=== PATIENT | male | born 1950 | race African-American/Black ===

== ENCOUNTER 2021-09-06 13:46 | Emergency (ER) | payer OTHER, MEDICARE ==
[~2021-09-06] VITALS: Ht 172.7 cm; Wt 65.8 kg
--- NOTE | 2021-09-06 13:47 | NUR ---
TO ER BED 11, [address] C/O ABDOMINAL PAIN AND VOMITING X 2 WEEKS, HR AT 144 WITH HX OF AFIB BUT "MEDS WERE STOLEN", AAOX3, BREATHING EVEN AND NON LABORED, CONNECTED TO MONITOR, WARM BLANKET GIVEN
[2021-09-06] MEDS ORDERED: DILTIAZEM HCL 25 MG IV IVP ONE (14:00)
[2021-09-06] MEDS ORDERED: IV NS 0.9% 1,000 ML IV ONE (14:00)
[2021-09-06] MEDS ORDERED: DILTIAZEM HCL IV 125 MG in IV D5W 100 ML IV ONE (14:00)
[2021-09-06] MEDS ORDERED: ASPIRIN 81 MG TAB.CHEW PO ONE (14:00)
[2021-09-06] MEDS ORDERED: ONDANSETRON HCL/PF 4 MG/2 ML VIAL IV ONE (14:00)
--- NOTE | 2021-09-06 14:02 | NUR ---
UNABLE TO PROVIDE URINE SPECIMEN AT THIS TIME
--- NOTE | 2021-09-06 14:02 | NUR ---
COVID SWAB DONE AND SENT TO LAB
[2021-09-06] MEDS ORDERED: ONDANSETRON HCL/PF 4 MG/2 ML VIAL ONE (14:03)
[2021-09-06] MEDS ORDERED: ASPIRIN 81 MG TAB.CHEW ONE (14:04)
[2021-09-06] MEDS ORDERED: DILTIAZEM HCL 25 MG IV ONE (14:05)
--- NOTE | 2021-09-06 14:08 | NUR ---
ADDENDUM: Intravenous End Time Documentation: Cardizem 125 mg/ 0.09 100 NacL) Start time:1408 pm End time: 1545 pm IV site:RFA PIV # 20 Port: #1
--- NOTE | 2021-09-06 14:15 | NUR ---
URINE COLLECTED AND SENT TO LAB
--- NOTE | 2021-09-06 14:40 | NUR ---
NURSE OFFICE AT BEDSIDE FOR BLOOD DRAW
[2021-09-06 14:58] LABS: BILIRUBIN,URINE SMALL (NEGATIVE); COLOR,URINE YELLOW (YELLOW); LEUKOCYTE ESTERASE ,URINE NEGATIVE (NEGATIVE); NITRITE, URINE NEGATIVE (NEGATIVE); PROTEIN,URINE 100 mg/dl (NEGATIVE); UGLUCOSE NEGATIVE (NEGATIVE); UROBILINOGEN,URINE 0.2 EU/dL (0.2)
[2021-09-06 14:58] LABS: BASOPHILS % (AUTO) 0.8 % (0.0-2.0); EOSINOPHILS % (AUTO) 0.3 % (0.0-6.0); HEMATOCRIT 45 % (39-51); HEMOGLOBIN 14.5 g/dL (13.5-17.5); LYMPHOCYTES # (AUTO) 0.6 K/uL (0.8-4.8); LYMPHOCYTES % (AUTO) 10.6 % (20.0-44.0); MEAN CORPUSCULAR HGB CONC 33 g/dl (31.0-36.0); MEAN CORPUSCULAR VOLUME 93 fL (80-96); MONOCYTES # (AUTO) 0.7 K/uL (0.1-1.30); NEUTROPHILS # (AUTO) 4.4 K/uL (1.8-8.9); NEUTROPHILS % (AUTO) 76.3 % (43.0-81.0); PLATELET COUNT (AUTO) 199 K/uL (150-450); RED BLOOD CELL COUNT(AUTO) 4.79 MIL/uL (4.5-6.0); WHITE BLOOD COUNT (AUTO) 5.7 K/uL (4.3-11.0)
[2021-09-06 15:03] LABS: BACTERIA,URINE 1+ /HPF (None Seen); RBC,URINE 81-100 /HPF (0-2); SQUAMOUS EPITHELIAL CELL,UR 0-2 /HPF (None Seen)
--- NOTE | 2021-09-06 15:08 | NUR ---
PATIENT WANTS TO GO MD MILLIE AWARE
[2021-09-06 15:09] LABS: CALCIUM, SERUM 8.3 mg/dL (8.5-10.1); CARBON DIOXIDE 24 mmol/L (21-32); CHLORIDE 106 mmol/L (98-107); CREATININE 1.9 mg/dL (0.6-1.3); GLUCOSE 204 mg/dL (74-106); POTASSIUM 4.3 mmol/L (3.5-5.1); SODIUM SERUM 139 mmol/L (136-145); UREA NITROGEN, BLOOD 30 mg/dL (7-18)
--- NOTE | 2021-09-06 15:11 | NUR ---
MOVE SHEET SUBMITTED AND CALLED FOR TELE BED.
--- NOTE | 2021-09-06 15:28 | NUR ---
PATIENT SIGNED AMA FORM, AWARE OF THE HEALTH RISKS
--- NOTE | 2021-09-06 15:30 | NUR ---
IV removed. Catheter intact and site benign. Pressure and 4x4 applied to site. No bleeding noted.Patient discharged to home in stable condition. Written and verbal after care instructions given. Patient verbalizes understanding of instruction.
[2021-09-06 15:34] LABS: ALANINE AMINOTRANSFERASE 531 U/L (12-78); ALBUMIN 2.9 g/dL (3.4-5.0); ALKALINE PHOSPHATASE 120 U/L (46-116); ASPARTATE AMINOTRANSFERASE 283 U/L (15-37); BILIRUBIN,DIRECT 0.3 mg/dL (0.0-0.2); BILIRUBIN,TOTAL 0.7 mg/dL (0.2-1.0); LIPASE 152 U/L (73-393); TOTAL PROTEIN, SERUM 7.3 g/dL (6.4-8.2)
[2021-09-06 15:47] VITALS: BP 113/65
== END 2021-09-06 15:47 | disposition left against medical advice (07) ==
LOC: ER 13:47
DX: I48.91 Unspecified atrial fibrillation (principal); R10.9 Unspecified abdominal pain; R11.2 Nausea with vomiting, unspecified; R07.9 Chest pain, unspecified; Z53.29 Procedure and treatment not carried out because of patient's decision for other reasons; R73.9 Hyperglycemia, unspecified; Z88.6 Allergy status to analgesic agent
CPT/HCPCS: 36415; 71045; 80048; 80076; 81001; 83690; 84484; 85025; 87081; 87426; 93005; 96361; 96365; 96375; 96376; 99291; C9803; J2405; J3490 ×2; J7030; J7060

== ENCOUNTER 2021-10-03 20:29 | Inpatient (IN) | payer OTHER, MEDICARE ==
[~2021-10-03] VITALS: Ht 176.5 cm; Wt 67.1 kg
--- NOTE | 2021-10-03 20:55 | NUR ---
PATIENT [id number] C/O RIGHT SIDE CHEST PAIN RADIATING TO BACK SINCE 0800, NOW FEELS WORST. PATIENT IS A/O X 4, RR EVEN AND UNLABORED, NO SOB NOTED, PATIENT CONNECTED TO CARDIAC AND POX MONITOR.
[2021-10-03 21:35] LABS: BASOPHILS # (AUTO) 0.1 K/uL (0.0-0.2); BASOPHILS % (AUTO) 1.2 % (0.0-2.0); EOSINOPHILS % (AUTO) 2.6 % (0.0-6.0); HEMATOCRIT 38 % (39-51); HEMOGLOBIN 12.1 g/dL (13.5-17.5); LYMPHOCYTES # (AUTO) 1.3 K/uL (0.8-4.8); MEAN CORPUSCULAR HGB CONC 32 g/dl (31.0-36.0); MEAN CORPUSCULAR VOLUME 94 fL (80-96); MONOCYTES # (AUTO) 0.8 K/uL (0.1-1.30); MONOCYTES % (AUTO) 12.7 % (2.0-12.0); NEUTROPHILS # (AUTO) 3.8 K/uL (1.8-8.9); NEUTROPHILS % (AUTO) 62.5 % (43.0-81.0); PLATELET COUNT (AUTO) 252 K/uL (150-450); WHITE BLOOD COUNT (AUTO) 6.1 K/uL (4.3-11.0)
[2021-10-03] MEDS ORDERED: ASPIRIN EC 81 MG TABLET.DR PO ONE (21:46)
[2021-10-03] MEDS ORDERED: DILTIAZEM HCL 50 MG IV ONE (21:46)
[2021-10-03 21:58] LABS: CALCIUM, SERUM 7.7 mg/dL (8.5-10.1); CARBON DIOXIDE 25 mmol/L (21-32); CHLORIDE 108 mmol/L (98-107); CREATININE 1.8 mg/dL (0.6-1.3); GLUCOSE 109 mg/dL (74-106); POTASSIUM 4.1 mmol/L (3.5-5.1); SODIUM SERUM 141 mmol/L (136-145); UREA NITROGEN, BLOOD 22 mg/dL (7-18)
[2021-10-03] MEDS ORDERED: DILTIAZEM HCL 50 MG IV IV ONE (22:00)
[2021-10-03] MEDS ORDERED: ASPIRIN 81 MG TAB.CHEW PO ONE (22:00)
[2021-10-03 22:10] LABS: ALANINE AMINOTRANSFERASE 22 U/L (12-78); ALKALINE PHOSPHATASE 77 U/L (46-116); ASPARTATE AMINOTRANSFERASE 22 U/L (15-37); BILIRUBIN,DIRECT 0.1 mg/dL (0.0-0.2); BILIRUBIN,TOTAL 0.4 mg/dL (0.2-1.0); TOTAL PROTEIN, SERUM 7.3 g/dL (6.4-8.2)
--- NOTE | 2021-10-03 22:14 | NUR ---
COVID TEST SWABBED AND SENT TO LAB
--- NOTE | 2021-10-03 22:46 | NUR ---
SPOKE TO MAGNETIC TESTING TECHNICIAN, PATIENT AUTHORIZED TO STAY.
[2021-10-03] MEDS ORDERED: MAG HYDROX/AL HYDROX/SIMETH 30 ML UDC PO PRN (23:30)
[2021-10-03] MEDS ORDERED: ZOLPIDEM TARTRATE 5 MG TABLET PO PRN (23:30)
[2021-10-03] MEDS ORDERED: MAGNESIUM HYDROXIDE 30 ML UDC PO PRN (23:30)
[2021-10-03] MEDS ORDERED: IV 1/2NS 1000 ML 1,000 ML IV PRN (23:30)
[2021-10-03] MEDS ORDERED: ACETAMINOPHEN 325 MG TABLET PO PRN (23:30)
[2021-10-03] MEDS ORDERED: Z GUARD REMEDY 4 OZ OINT TP PRN (23:30)
[2021-10-03] MEDS ORDERED: ONDANSETRON HCL/PF 4 MG/2 ML VIAL IVP PRN (23:30)
--- NOTE | 2021-10-04 00:41 | NUR ---
tele [phone]
--- NOTE | 2021-10-04 01:08 | NUR ---
CALLED FOR REPORT, NURSE WILL CALL BACK
[2021-10-04] MEDS ORDERED: HYDROCODONE/APAP 5/325MG TABLET ONE (01:13)
[2021-10-04] MEDS: HYDROCODONE/APAP 5/325MG TABLET PO PRN ×2 (01:20→13:29)
--- NOTE | 2021-10-04 01:23 | NUR ---
REPORT GIVEN TO REAGAN PERDOMO FOR MARTIR
--- NOTE | 2021-10-04 02:01 | NUR ---
PATIENT TRANSPORTED TO [facility] ON COPY COORDINATOR PER ACLS PROTOCOL WITHOUT INCIDENT
[2021-10-04 02:05] VITALS: BP 164/70
--- NOTE | 2021-10-04 02:05 | NUR ---
ELECTRICAL ASSEMBLY TECHNICIAN RECIEVING NOTE PATIENT RECEIVED FROM ER VIA [facility]. PATIENT IS A/OX2. NO S/S OF DISTRESS. ON RM AIR SATTING 97%. RFA #22 SL INTACT AND PATENT. TELE MONITOR REVEALS UNCONTROLLED AFIB 77. VS WNL. NO COMPLAINTS OF PAIN AT THIS MOMENT BUT PAIN HAS BEEN ENDORSED TO ME FROM ER REPORT GIVEN TO ME BY RAFI. HE WAS GIVEN PAIN MEDS THEN. PATIENT WAS ORIENTED TO THE UNIT, BELONGINGS LOGGED INTO SHEET AND PLACED IN CHART. PATIENT WAS INSTRUCTED POLICY CHANGE CLERK CERVANTES USE. BED ALARM ON. SAFETY MEASURES IN PLACE: BED AT LOWEST POSITION, RAILS UP X3, CALL CERVANTES WITHIN REACH. WILL CONTINUE TO MONITOR PATIENT.
[2021-10-04 04:00] VITALS: BP 131/69
[2021-10-04] MEDS ORDERED: DILTIAZEM HCL 30 MG TABLET PO SCH (06:00)
--- NOTE | 2021-10-04 07:01 | NUR ---
CAN BANDER OPERATOR CLOSING NOTE PATIENT IS ASLEEP IN BED. A/OX2. NO S/S OF DISTRESS, BREATHING UNLABORED ON RM AIR. RFA #22 INTACT AND PATENT W/ 1/2NS 75ML/HR. TELE MONITOR REVEALS AFIB CONTROLLED 76. SAFETY MEASURES IN PLACE: BED AT LOWEST POSITION, RAILS UP X3, CALL CERVANTES WITHIN REACH. WILL ENDORSE TO NEXT SHIFT FOR MARTIR.
--- NOTE | 2021-10-04 07:35 | NUR ---
AIR LIFT OPERATOR OPENING NOTE PATIENT ASLEEP IN BED, EASY TO AROUSE. A/O X 2. NO S/SX OF DISTRESS NOTED. BREATHING IS EVEN AND UNLABORED. PT WITH EXTERNAL GEOGRAPHIC INFORMATION SYSTEM ANALYST WITH READING CA.FIB CONTROLLED 70'S. IV ACCESS RFA#22 PATENT AND INTACT WITH NS RUNNING @ 75MLS/HR. SAFETY MEASURES IN PLACE WITH BED LOCKED AT LOWEST POSITION WITH SIDE RAILS UP X 2. CALL LIGHT IS WITHIN REACH. WILL CONTINUE TO MONITOR PATIENT THROUGHOUT SHIFT.
[2021-10-04 08:00] VITALS: BP 118/50
[2021-10-04] MEDS: ASPIRIN EC 81 MG TABLET.DR PO SCH (08:10)
[2021-10-04] MEDS: NICOTINE PATCH (14MG) 14 MG PATCH.TD24 TD SCH (08:10)
[2021-10-04] MEDS: PANTOPRAZOLE 40 MG TABLET.DR PO SCH (08:10)
[2021-10-04] MEDS: DILTIAZEM HCL CD 240 MG PO SCH (10:16)
--- NOTE | 2021-10-04 10:45 | NUR ---
RN NOTE CALLED AND SPOKE WITH DR. YOUSUF JOHNSON VIA [employer] ANSWERING SYSTEM TO DO MEDICATION RECON.
[2021-10-04 12:00] VITALS: BP 136/62
--- NOTE | 2021-10-04 13:29 | NUR ---
RN NOTE-PAIN MED PT C/O CHEST GENERALIZED PAIN 01/25. ADMINISTERED NORCO 5-325MG. WILL MONITOR PT FOR EFFECTIVENESS AND/OR ADVERSE S/E.
[2021-10-04] MEDS ORDERED: ATOR40TA PO (14:38)
[2021-10-04] MEDS ORDERED: DILT-32 PO (14:38)
[2021-10-04] MEDS ORDERED: DILTIAZEM HCL CD 120 MG PO SCH (15:00)
[2021-10-04 15:24] LABS: BASOPHILS % (AUTO) 0.6 % (0.0-2.0); HEMATOCRIT 37 % (39-51); LYMPHOCYTES % (AUTO) 21.2 % (20.0-44.0); MEAN CORPUSCULAR HGB CONC 32 g/dl (31.0-36.0); MEAN CORPUSCULAR VOLUME 92 fL (80-96); MONOCYTES # (AUTO) 0.6 K/uL (0.1-1.30); MONOCYTES % (AUTO) 12.5 % (2.0-12.0); NEUTROPHILS # (AUTO) 2.8 K/uL (1.8-8.9); NEUTROPHILS % (AUTO) 56.7 % (43.0-81.0); PLATELET COUNT (AUTO) 236 K/uL (150-450); RED BLOOD CELL COUNT(AUTO) 4.02 MIL/uL (4.5-6.0); WHITE BLOOD COUNT (AUTO) 4.9 K/uL (4.3-11.0)
[2021-10-04 15:34] LABS: CALCIUM, SERUM 7.8 mg/dL (8.5-10.1); CARBON DIOXIDE 25 mmol/L (21-32); CHLORIDE 106 mmol/L (98-107); CREATININE 1.3 mg/dL (0.6-1.3); GLUCOSE 98 mg/dL (74-106); MAGNESIUM 2.2 mg/dL (1.8-2.4); PHOSPHORUS 4.2 mg/dL (2.5-4.9); SODIUM SERUM 138 mmol/L (136-145); UREA NITROGEN, BLOOD 21 mg/dL (7-18)
[2021-10-04 15:46] LABS: THYROID STIMULATING HORMONE 0.706 uIU/mL (0.358-3.74)
[2021-10-04 16:00] VITALS: BP 155/61
[2021-10-04] MEDS: ATORVASTATIN 40 MG TABLET PO SCH (18:04)
--- NOTE | 2021-10-04 18:55 | NUR ---
PLANT QUALITY MANAGER CLOSING NOTE PATIENT ASLEEP IN BED, EASY TO AROUSE. A/O X 2. NO S/SX OF DISTRESS NOTED. BREATHING IS EVEN AND UNLABORED. PT WITH EXTERNAL FINANCIAL LEGAL ASSISTANT WITH READING CA.FIB CONTROLLED 70'S. IV ACCESS RFA#22 PATENT AND INTACT WITH 1/2NS RUNNING @ 75MLS/HR. SAFETY MEASURES IN PLACE WITH BED LOCKED AT LOWEST POSITION WITH SIDE RAILS UP X 2. CALL LIGHT IS WITHIN REACH. ALL NEEDS MET THROUGHOUT SHIFT.WILL ENDORSE CONTINUITY OF CARE TO ONCOMING SHIFT.
[2021-10-04 20:00] VITALS: BP 136/61
--- NOTE | 2021-10-04 22:00 | NUR ---
COMPUTER NETWORKER NOTES PT REFUSED TROP BLOOD DRAW. EXPLAINED TO PT IMPORTANCE OF BLOOD DRAW IN HIS POC BUT PT STILL REFUSED. WILL TRY TO DRAW IN AM PER LAB.
[2021-10-05] VITALS: BP 125/73
[2021-10-05 04:00] VITALS: BP 128/70
--- NOTE | 2021-10-05 06:05 | NUR ---
DOLPHIN RESEARCHER NOTES PT REFUSED BLOOD DRAW. EXPLAINED TO PT IMPORTANCE OF BLOOD DRAW IN HIS POC BUT PT STILL REFUSED. WILL TRY AGAIN LATER PER LAB.
--- NOTE | 2021-10-05 06:30 | NUR ---
EDGE SETTER NOTES AWAKE & RESPONSIVE. NOT IN ANY DISTRESS. NO SOB NOTED. DENIES ANY PAIN OR DISCOMFORT AT THIS TIME. ON TELE SR WITH PACS @ 73 WITH IVF INFUSING WELL. AM CARE DONE. MONITORED ACCORDINGLY. CALL LIGHT WITHIN REACH. BED IN LOWEST POSITION. SR UP X 3 WITH BED ALARM ON FOR SAFETY. WILL ENDORSE TO NEXT SHIFT.
--- NOTE | 2021-10-05 07:16 | NUR ---
CMA OPENING NOTE PATIENT ASLEEP IN BED, EASY TO AROUSE. PATIENT IS ALERT/ ORIENTED X 2-3. PATIENT ON ROOM AIR, WITH NO SIGNS OF DISTRESS. PT ON EXTERNAL BIOFUELS PLANT SUPERINTENDENT WITH SINUS RHYTHYM IN 70'S. WITH IV ACCESS RFA#22 WITH IVF ON NS RUNNING AT 125 L/HR, INFUSING WELL. SAFETY MEASURES IN PLACE WITH BED LOCKED AT LOWEST POSITION WITH SIDE RAILS UP X 2. CALL LIGHT IS WITHIN REACH. WILL CONTINUE TO MONITOR PATIENT THROUGHOUT SHIFT.
[2021-10-05 08:00] VITALS: BP 138/74
--- NOTE | 2021-10-05 08:00 | NUR ---
INSTRUCTIONAL SUPERVISOR NOTE PATIENT SEEN BY DR. GIMENEZ. WILL CONTINUE TO MONITOR PATIENT.
[2021-10-05] MEDS: PANTOPRAZOLE 40 MG TABLET.DR PO SCH (08:51)
[2021-10-05] MEDS: ASPIRIN EC 81 MG TABLET.DR PO SCH (08:52)
[2021-10-05] MEDS: NICOTINE PATCH (14MG) 14 MG PATCH.TD24 TD SCH (08:52)
[2021-10-05] MEDS: DILTIAZEM HCL CD 240 MG PO SCH (08:52)
--- NOTE | 2021-10-05 11:00 | NUR ---
MS RN NOTE PATIENT SEEN BY DR. JOHNSON. WILL CONTINUE TO MONITOR PATIENT.
[2021-10-05 16:00] VITALS: BP 133/56
[2021-10-05] MEDS: ATORVASTATIN 40 MG TABLET PO SCH (17:25)
--- NOTE | 2021-10-05 19:18 | NUR ---
MS RN CLOSING NOTE PATIENT ASLEEP IN BED, EASY TO AROUSE. PATIENT IS ALERT/ ORIENTED X 2-3. PATIENT ON ROOM AIR, WITH NO SIGNS OF DISTRESS. PT ON EXTERNAL FIRE WARDEN WITH SINUS RHYTHYM IN 70'S. WITH IV ACCESS RFA#22 ON SALINE LOCK, INFUSING WELL. SAFETY MEASURES IN PLACE WITH BED LOCKED AT LOWEST POSITION WITH SIDE RAILS UP X 2. CALL LIGHT IS WITHIN REACH. WILL ENDORSE TO NEXT SHIFT FOR CONTINUITY OF CARE.
--- NOTE | 2021-10-05 19:35 | NUR ---
DAY CARE AIDE OPENING NOTES RECEIVED PATIENT ON BED, AWAKE, ALERT AND ORIENTED X 2. ON ROOM AIR, TOLERATING WELL. NO SHORTNESS OF BREATH NOTED. NOT IN ANY FORM OF DISTRESS. NO COMPLAINS OF PAIN AT THIS TIME. WITH IV ACCESS AT RIGHT FOREARM G22; SALINE LOCKED; DRY, PATENT AND INTACT. CALL LIGHT AND TABLE WITHIN REACH. SIDE RAILS UP X 2. BED IS IN LOWEST LOCKED POSITION. SAFETY MEASURES IN PLACED. WILL CONTINUE TO MONITOR Addendum: 10/05/21 at 2221 by JOVON RASHEED RN MS RN OPENING NOTES
[2021-10-05 20:12] VITALS: BP 124/62
[2021-10-05] MEDS: MUPIROCIN OINT 2% 22 GM TUBE NS SCH (20:59)
--- NOTE | 2021-10-05 21:20 | NUR ---
MS RN NOTES PATIENT COMPLAINED OF PAIN WITH SCALE OF 9/10. OFFERED PRN MED TYLENOL; REFUSED TO TAKE. MADIHA FORD MD NOTIFIED; WITH NEW ORDER MADE AND CARRIED OUT.
[2021-10-05] MEDS ORDERED: MORPHINE SULFATE INJ 2 MG/ML DISP.SYRIN IV PRN (22:00)
--- NOTE | 2021-10-06 06:55 | NUR ---
MS RN CLOSING NOTES PATIENT IS ON BED, AWAKE, ALERT AND ORIENTED X 2. DENIES ANY PAIN. NO SOB NOTED. NOT IN ANY FORM OF DISTRESS. WITH IV ACCESS ON RFA G22; SALINE LOCKED; DRY, PATENT AND INTACT. CALL LIGHT AND TABLE WITHIN REACH. SIDE RAILS UP X 2. BED IN LOWEST LOCKED POSITION. SAFETY MEASURES IN PLACED. WILL ENDORSED TO NEXT SHIFT.
[2021-10-06 08:00] VITALS: BP 114/61
--- NOTE | 2021-10-06 08:03 | NUR ---
MS/RN OPENING NOTES RECEIVED PATIENT IN BED, AWAKE, ALERT AND ORIENTED X 2. DENIES ANY PAIN. NO SOB NOTED. NOT IN ANY FORM OF DISTRESS. WITH IV ACCESS ON RFA G22; SALINE LOCKED; DRY, PATENT AND INTACT. CALL LIGHT AND TABLE WITHIN REACH. SIDE RAILS UP X 2. BED IN LOWEST LOCKED POSITION. SAFETY MEASURES IN PLACED. WILL CONTINUE WITH THE PLAN OF CARE.
[2021-10-06] MEDS: PANTOPRAZOLE 40 MG TABLET.DR PO SCH (08:45)
[2021-10-06] MEDS: NICOTINE PATCH (14MG) 14 MG PATCH.TD24 TD SCH (08:45)
[2021-10-06] MEDS: ASPIRIN EC 81 MG TABLET.DR PO SCH (08:45)
[2021-10-06] MEDS: DILTIAZEM HCL CD 240 MG PO SCH (09:00)
[2021-10-06] MEDS ORDERED: APIX5TAB PO (10:02)
[2021-10-06] MEDS: MUPIROCIN OINT 2% 22 GM TUBE NS SCH (10:10)
[2021-10-06] MEDS: APIXABAN 5 MG TABLET PO SCH ×2 (10:17→17:00)
--- NOTE | 2021-10-06 14:16 | NUR ---
"SS Consult: SS consult for homelessness. Pt. Is a 71-year-old White male who demonstrates adequate insight to the reason for hospitalization. Per pt., he presented himself to hospital for chest pain. Pt. was oriented x3, alert, and cooperative. During interview, pt. was capable of following directions, made appropriate eye-contact, and appeared unkempt. Pt.s speech was at a normal rate and pt.s mood was elevated. Pt. reported no hx of mental health, substance abuse, suicidal ideation, or homicidal ideation. Pt. denies auditory hallucinations, visual hallucinations, paranoia, or delusions. SW explored pt.s living situation. Per pt., he has been homeless for about 20 years. Pt. has never been to a jail and refuse to. Pt. stated that he wants to go back to the streets once discharged. Plan: SW provided available resources and pt. accepted. Upon discharge, per pt., he will return to the streets. SW provided pt. with TAP card. Pt. signed homeless waiver and its placed in chart. Resources Provided: [facility]: SPA 2 | [facility]: [facility] Address: Confidential (call for location ) Population Served: Coed # of Beds: 57 SPA 4 | [facility] Provider: Home at Last Address: [address] [place] [address] # of Beds: 49 Population Served: [place]ed [facility] 6 | [facility] Provider: Home at Last Address: [address] [place] [address] # of Beds: 49 Population Served: Coed [facility]anda [facility] Residential Provider: Jane Allen [facility] Address: [address] [facility] [address] # of Beds: 20 Population Served: Women [facility] Facility Provider: Home at Last Address: [address] [address] # of Beds: 30 Population Served: Women SPA 8 | [facility] Library Provider: [facility] [place] Address: [address] [place] [address] # of Beds: 65 Population Served: [facility] Year-round shelters: [facility] [place] [address] [place] [address] ; [facility] [address] [facility] [place] [address]; [facility] [address] [facility] [address] Winter Shelters: Destiny Juanita Vernal Provider: [facility] [place] Address: [address] [place], [address] # of Beds: 47 Population Served: [facility] 6 | [facility] Cristel Ly Vernal Provider: Home at Last Address: [address], [address] # of Beds: 66 Population Served: [facility] [place] Vernal Provider: [facility] Serve Address: [address] [facility], [address] # of Beds: 56 Population Served: [facility] Eron [place] Provider: [facility] Address: [address] [facility], [address] # of Beds: 49 Population Served: [facility] 8 | [facility] Provider: First to Serve Address: [address] [facility], [address] # of Beds: 37 Population Served: [facility] Hygiene: [facility]: [address] [address] Vega ; [facility] [address] [facility] ; [facility] 0485 Simon Humphries . Food Resources: [place] [facility] at [facility]- [address]. [place]; Meet Each Need with Dignity ([facility]) [address] [address] . [place]; [facility] [address] [place] [facility]; [facility] 85Anamika Manning. Mental Health resources provided: [facility] [address] [place], [place] [address] ; [facility] [address] [facility] [address], [place], [place] [phone] ; [facility] [address] [facility] [place], [place] [phone] ; [facility] [address] [place], [place] [id number] Healthcare Clinics: [facility] [address] [facility], [address] [place]. [place] ; [facility] [address] [facility] [address] [place] [address]; [facility] [address] [place] [phone]) [phone] Counseling--Outpatient [facility] [address] [facility], [place] [address] (Specializes in in-depth psychotherapy for emotional distress: anxiety, depression, interpersonal conflicts, life transitions, childhood abuse) [facility] Guidance Center [address] [place] [address] (Assist with solving problem marital difficulties, separation & divorce, aging parents, & grief, chronic & terminal illness) [facility] [address] [place] [address] (Deal with loss & grief, anxiety, marital difficulties) Homebound/Mental Health Services [address] [facility], [address] [place], [place] [phone] (Provide in-home mental services to people who are incapable of leaving their homes) Organization for Needs of the Elderly Senior Service/Resource Center [address] [facility] [address] [facility] [address] [facility]. [place], [place] [address] PSYCHIATRIC OUTPATIENT SERVICES [facility] Partial Hospitalization and Intensive Outpatient Program (Managed Care and [place] Only)[address] [facility] [phone] [facility] Partial Hospitalization and Outpatient [id number] [place], [place] [phone] SIMON ODELL [facility] Evd[address] [facility]. [address] [place], [place] [phone] [facility] Partial Hospitalization and Outpatient [id number] Emeliebony [facility] Simon Odell, [phone] Substance Abuse resources provided included: [facility] Substance Abuse Self-Helpline ([facility]) ; C[facility] -HELP [address] [facility]. [place] [id number] ; [facility] [address] [facility] [address] ; [facility] Rehabilitation Program [address] vdConey Island Hospital [address] ; [facility] [address] [phone] ; [facility] [address] [facility] [address] ; [facility] [address] [facility] [phone] ; [facility] Substance Abuse Helpline([facility])-[facility] ; [facility] ; [facility]; [facility] [place]; [facility] Simon [place]; [facility] [place]; [facility] [place]; [facility] Payal Walters; Alcoholics Anonymous -SFV; [place] ; Marijuana Anonymous -SFV; Narcotics Anonymous www.na.org;"
[2021-10-06 16:00] VITALS: BP 146/62
--- NOTE | 2021-10-06 17:08 | NUR ---
MS/ACCELERATOR SYSTEMS DIRECTOR NOTES PATIENT IS ALERT AND ORIENTEDX3, ABLE TO MAKE NEEDS KNOWN. STABLE ON ROOM AIR. AMBULATORY AND STEADY. PATIENT IS MEDICALLY STABLE AND DR. JOHNSON ORDERED DISCHARGE FOR THE PATIENT. DISCHARGE INSTRUCTIONS GIVEN AND ABLE TO VERBALIZED UNDERSTANDING. IV ACCESS DISCONTINUED. PATIENT REQUESTED FOR A CAB. ESCORTED PATIENT DOWN TO THE LOBBY AND WAS PICKED UP BYA CAB.
== END 2021-10-06 16:45 | disposition home or self-care (01) | DRG 201 ==
LOC: ER 20:36 → TELE 10-04 00:55 → MED 10-05 14:57
PROVIDERS: ADMIT Student in an Organized Health Care Education/Training Program; ATTEND Internal Medicine
DX: I48.91 Unspecified atrial fibrillation (principal); N17.0 Acute kidney failure with tubular necrosis; E44.0 Moderate protein-calorie malnutrition; N18.9 Chronic kidney disease, unspecified; D64.9 Anemia, unspecified; Z59.00 Homelessness unspecified; E88.09 Other disorders of plasma-protein metabolism, not elsewhere classified; F17.210 Nicotine dependence, cigarettes, uncomplicated; Z91.19 Patient's noncompliance with other medical treatment and regimen; R55 Syncope and collapse; R74.01 Elevation of levels of liver transaminase levels; Z20.822 Contact with and (suspected) exposure to COVID-19; Z68.21 Body mass index [BMI] 21.0-21.9, adult; I25.10 Atherosclerotic heart disease of native coronary artery without angina pectoris; Z91.81 History of falling
CPT/HCPCS: 36415; 71045-TC; 80048-TC; 80076-TC; 83735-TC; 84100-TC; 84443-TC; 84484-TC; 85025-TC; 87081-TC; 93307-TC; 97116-TC; 97530-TC; C9803; G0378; J2270; J3490

== ENCOUNTER 2021-10-15 04:13 | Inpatient (IN) | payer MEDICARE, OTHER ==
[~2021-10-15] VITALS: Ht 175.3 cm; Wt 64.4 kg
[~2021-10-15 04:13] MED LIST: APIX5TAB PO; ATOR40TA PO; DILT-32 PO
--- NOTE | 2021-10-15 04:15 | NUR ---
BIBS C/O MIDSTERNAL CP [id number]. PATIENT ALERT AND ORIENTED X3. AMBULATORY WITH NON LABORED BREATHING. PATIENT ON A MONITOR WITH POX. AWAITING MD GONZALEZ.
--- NOTE | 2021-10-15 04:20 | NUR ---
@ BEDSIDE FOR EVAL.
--- NOTE | 2021-10-15 04:30 | NUR ---
BLOOD DRAWN AND SENT TO LAB
--- NOTE | 2021-10-15 04:32 | NUR ---
ER GREASE MACHINE WORKER @ BEDSIDE
[2021-10-15 04:43] LABS: BASOPHILS % (AUTO) 0.5 % (0.0-2.0); EOSINOPHILS % (AUTO) 0.4 % (0.0-6.0); HEMATOCRIT 44 % (39-51); HEMOGLOBIN 14.5 g/dL (13.5-17.5); LYMPHOCYTES # (AUTO) 0.6 K/uL (0.8-4.8); LYMPHOCYTES % (AUTO) 7.8 % (20.0-44.0); MEAN CORPUSCULAR HGB CONC 33 g/dl (31.0-36.0); MEAN CORPUSCULAR VOLUME 92 fL (80-96); MONOCYTES # (AUTO) 0.8 K/uL (0.1-1.30); MONOCYTES % (AUTO) 10.5 % (2.0-12.0); NEUTROPHILS # (AUTO) 6.4 K/uL (1.8-8.9); NEUTROPHILS % (AUTO) 80.8 % (43.0-81.0); PLATELET COUNT (AUTO) 237 K/uL (150-450)
[2021-10-15 05:08] LABS: CALCIUM, SERUM 8.7 mg/dL (8.5-10.1); CARBON DIOXIDE 23 mmol/L (21-32); CHLORIDE 103 mmol/L (98-107); CREATININE 1.8 mg/dL (0.6-1.3); GLUCOSE 116 mg/dL (74-106); POTASSIUM 4.8 mmol/L (3.5-5.1); SODIUM SERUM 136 mmol/L (136-145); UREA NITROGEN, BLOOD 37 mg/dL (7-18)
[2021-10-15] MEDS ORDERED: IV NS 0.9% 1,000 ML IV PRN (05:30)
--- NOTE | 2021-10-15 05:30 | NUR ---
COVID SWAB DONE AND SENT TO LAB
[2021-10-15] MEDS ORDERED: ASPIRIN 81 MG TAB.CHEW ONE (05:47)
[2021-10-15] MEDS ORDERED: NITROGLYCERIN 0.4 MG/TAB BOTTLE ONE (05:47)
[2021-10-15] MEDS ORDERED: MAGNESIUM HYDROXIDE 30 ML UDC PO PRN (06:00)
[2021-10-15] MEDS ORDERED: Z GUARD REMEDY 4 OZ OINT TP PRN (06:00)
[2021-10-15] MEDS ORDERED: ACETAMINOPHEN 325 MG TABLET PO PRN (06:00)
[2021-10-15] MEDS ORDERED: MAG HYDROX/AL HYDROX/SIMETH 30 ML UDC PO PRN (06:00)
[2021-10-15] MEDS ORDERED: NITROGLYCERIN 0.4 MG/TAB BOTTLE SL ONE (06:00)
[2021-10-15] MEDS ORDERED: ZOLPIDEM TARTRATE 5 MG TABLET PO PRN (06:00)
[2021-10-15] MEDS ORDERED: ONDANSETRON HCL/PF 4 MG/2 ML VIAL IVP PRN (06:00)
[2021-10-15] MEDS ORDERED: ASPIRIN 81 MG TAB.CHEW PO ONE (06:00)
--- NOTE | 2021-10-15 06:18 | NUR ---
[facility] ADMITTED UNDER DR FIGUEREDO GIVE 10 MINS [phone]
--- NOTE | 2021-10-15 07:42 | NUR ---
FAXED CLINICALS TO [facility] [phone]
--- NOTE | 2021-10-15 09:10 | NUR ---
SPOKE TO LOIS AT CASE MANAGEMENT, SHE SAID SHE WILL CALL BACK FOR INFO.
--- NOTE | 2021-10-15 09:34 | NUR ---
FEDE RAMIREZ [phone] NOT ACCEPTING PT AT THIS TIME DUE TO BED CAPACITY.
--- NOTE | 2021-10-15 10:08 | NUR ---
call from noel ring, authorized patient to stay here
--- NOTE | 2021-10-15 10:42 | NUR ---
[facility] CALLED COOK SHIP PAGED.
--- NOTE | 2021-10-15 11:22 | NUR ---
PT UNABLE TO PROVIDE URINE AT THIS TIME, PT PROVIDED WITH URINAL AT BEDSIDE.
--- NOTE | 2021-10-15 11:23 | NUR ---
FOLLOWED UP FOR BED.
[2021-10-15] MEDS ORDERED: APIXABAN 5 MG TABLET ONE (11:26)
[2021-10-15] MEDS ORDERED: DILTIAZEM HCL CD 120 MG ONE (11:27)
[2021-10-15] MEDS: DILTIAZEM HCL CD 120 MG PO SCH ×2 (11:35→17:11)
[2021-10-15] MEDS: APIXABAN 5 MG TABLET PO SCH ×2 (11:36→17:12)
--- NOTE | 2021-10-15 11:36 | NUR ---
PT MORNING MEDICATION WAS DELAYED, PT WAS ORIGINALLY GOING TO BE TRANSPORTED, PT WAS ACCEPTED TO HOSPITAL AND AWAITED FOR PT TO BE PUT IN TRANSITION FOR MEDICATION TO BE VERIFIED.
--- NOTE | 2021-10-15 12:01 | NUR ---
BED 326-1 PER NURSING SUP. NURSE IS
--- NOTE | 2021-10-15 12:07 | NUR ---
REPORT GIVEN TO IDALMIS KIRK FOR MARTIR
--- NOTE | 2021-10-15 12:46 | NUR ---
PT TRANSPORT TO 3W IN STABLE CONDITION WITH ACLS PROTOCOL IN PLACE.
--- NOTE | 2021-10-15 12:47 | NUR ---
RN NOTES RECEIVED PATIENT FROM ER WITH MAYNOR. PATIENT ALERT AND ORIENTED TIMES 4. NO PAIN NOTED. NO RESPIRATORY DISTRESS NOTED. LAO SPEAKER. AMBULATORY. ABLE TO MAKE NEEDS KNOWN. IV SITE RIGHT FA g # 18 INTACT. PATIENT REFUSED SKIN CHECKS. PATIENT IS REFUSING TELE MONITOR . WILL TRY LATER. PATIENT REFUSED TO WEAR GOWN. ALL BELONGINGS ACCOUNTED. MEDICATIONS SENT TO PHARMACY. A PACK OF CIGARETTE AND A PATTERN MAKER PROGRAMER PUT IN THE STATION. THERE IS A BROKEN AND CELL PHONE IN THE BELONGINGS. KEPT BED SIDE WITH OTHER BELONGINGS. BED IN THE LOWEST POSITION AND LOCKED.CALL LIGHT AND TABLE IN REACH. WILL CONTINUE TO MONITOR.
[2021-10-15 12:50] VITALS: BP 123/61
[2021-10-15 16:00] VITALS: BP 140/66
[2021-10-15] MEDS: ATORVASTATIN 40 MG TABLET PO SCH (17:11)
--- NOTE | 2021-10-15 18:53 | NUR ---
CHIEF OF SAFETY AND PROTECTION NOTES PATIENT RESTING IN BED. A/O TIMES 4. NO PAIN NOTED. NO RESPIRATORY DISTRESS NOTED. NO SOB NOTED. PATIENT REFUSED TELE MONITORING AND REMOVED THE MONITOR. EDUCATED AND EXPLAINED TO THE PATIENT STILL REFUSING. PATIENT REFUSED SKIN CHECKS. ABLE TO MAKE NEEDS KNOWN. ALL DUE MEDS GIVEN ORDERED. IV ACCESS ON THE RIGHT FA INTACT. ALL NEEDS ATTENDED. BED LOCKED IN LOWEST POSITION. CALL LIGHT AND TABLE IN REACH. WILL ENDORSE FOR MARTIR.
--- NOTE | 2021-10-15 19:20 | NUR ---
TELE/RN NOTE PT RESTING IN BED, EASILY AROUSABLE. A/OX4. PT REFUSES TELE MONITOR AT THIS TIME. HE DENIES ANY PAIN OR DISCOMFORT. RESPIRATIONS EVEN/UNLABORED. PT REFUSING SKIN ASSESSMENT. IV SITE: R-FA #18G INTACT/PATENT, RUNNING NS TKO. PT IN NO ACUTE DISTRESS. SAFETY MEASURES IN PLACE. WILL CONT TO MONITOR.
[2021-10-15 20:00] VITALS: BP 138/72
--- NOTE | 2021-10-15 20:27 | NUR ---
Seen by . Noted new order: [place] i tab po q6hr prn for mod pain
--- NOTE | 2021-10-15 20:55 | NUR ---
RN NOTE PT C/O SOB, RR 19, O2 SAT WAS 94%. PLACED ON O2 @2LPM VIA NC. O2 SAT TO 96%
--- NOTE | 2021-10-15 21:35 | NUR ---
RN NOTE PT C/O UPSET STOMACH. GIVEN MAALOX ORDERED
[2021-10-15] MEDS: HYDROCODONE/APAP 5/325MG TABLET PO PRN (23:26)
[2021-10-16] VITALS (7 sets, daily range): BP systolic 128–156; BP diastolic 57–72
--- NOTE | 2021-10-16 06:52 | NUR ---
RN NOTE PT RESTING IN BED, EASILY AROUSABLE TO STIMULI. HE DENIES ANY PAIN AT THIS TIME. DENIES SOB. ON O2 @2LPM VIA NC, O2 SAT 98%. PT IN NO ACUTE DISTRESS. SAFETY MEASURES MAINTAINED.
[2021-10-16 07:20] LABS: CALCIUM, SERUM 7.8 mg/dL (8.5-10.1); CREATININE 1.3 mg/dL (0.6-1.3); POTASSIUM 3.9 mmol/L (3.5-5.1)
--- NOTE | 2021-10-16 07:25 | NUR ---
ms rn received on bed, awake,alert,oriented x4,not in any form of distress, respirations even and unlabored,no sob noted, lungs are clear,abdomen soft,positive bowel sounds,denies pain at this time, will monitor patient.
[2021-10-16 07:28] LABS: BASOPHILS # (AUTO) 0.1 K/uL (0.0-0.2); BASOPHILS % (AUTO) 1.2 % (0.0-2.0); EOSINOPHILS % (AUTO) 2.2 % (0.0-6.0); HEMATOCRIT 41 % (39-51); HEMOGLOBIN 13.4 g/dL (13.5-17.5); LYMPHOCYTES # (AUTO) 0.7 K/uL (0.8-4.8); LYMPHOCYTES % (AUTO) 12.5 % (20.0-44.0); MEAN CORPUSCULAR HGB CONC 33 g/dl (31.0-36.0); MEAN CORPUSCULAR VOLUME 92 fL (80-96); MONOCYTES # (AUTO) 0.6 K/uL (0.1-1.30); NEUTROPHILS # (AUTO) 4.4 K/uL (1.8-8.9); NEUTROPHILS % (AUTO) 74.1 % (43.0-81.0); PLATELET COUNT (AUTO) 189 K/uL (150-450); RED BLOOD CELL COUNT(AUTO) 4.44 MIL/uL (4.5-6.0); WHITE BLOOD COUNT (AUTO) 5.9 K/uL (4.3-11.0)
--- NOTE | 2021-10-16 07:45 | NUR ---
MS KIRK OPENING NOTES RECEIVED PATIENT LYING IN BED, A/O X4. C/O RADIATING CHEST PAIN TO LEFT ARM 01/25. ADMINISTERED O2 AT 2 LPM VIA NASAL CANNULA. HAS RIGHT FOREARM IV ACCESS #18G AND SALINE LOCK. REDNESS NOTED AROUND IV SITE. PER AM NURSE, PATIENT IS NON-COOPERATIVE AND REFUSED IV RE-INSERTION. SAFETY PRECAUTIONS IN PLACE. WILL CONTINUE PLAN OF CARE. Addendum: 10/16/21 at 2005 by December ALVARO KIRK INCORRECT TIME. WILL RE-ENTER NOTES
[2021-10-16 08:27] LABS: PHOSPHORUS 3.4 mg/dL (2.5-4.9)
--- NOTE | 2021-10-16 09:00 | NUR ---
ms mott breakfast served,due meds given,tolerated well.
[2021-10-16] MEDS: NICOTINE PATCH (14MG) 14 MG PATCH.TD24 TD SCH (09:21)
[2021-10-16] MEDS: DILTIAZEM HCL CD 120 MG PO SCH ×2 (09:21→17:49)
[2021-10-16] MEDS: APIXABAN 5 MG TABLET PO SCH ×2 (09:22→17:50)
--- NOTE | 2021-10-16 10:00 | NUR ---
ms rn was seen by dr. taiwo porter/ orders made and carried out.
--- NOTE | 2021-10-16 11:05 | NUR ---
ms rn was seen by makenna agrees to have ctangranjana, will let him sing consent.
[2021-10-16 11:16] LABS: BAND % (MANUAL) 1 % (0.0-5.0); NEUTROPHILS % (MANUAL) 67 (42-76)
[2021-10-16 11:17] LABS: EOSINOPHILS % (MANUAL) 5 % (0-4); LYMPHOCYTES % (MANUAL) 12 % (16-48); MONOCYTES % (MANUAL) 12 % (0-11.0); REACTIVE LYMPHOCYTES 3 % (0-0)
--- NOTE | 2021-10-16 13:20 | NUR ---
ms rn cisco network architect came to picker feeder patient, patient claimed that he in allergic to dye, will notify md, agrees to have pre meds before procedure.
--- NOTE | 2021-10-16 14:00 | NUR ---
ms rn notified, decided to do it in am, not today
[2021-10-16] MEDS ORDERED: diphenhydrAMINE HCL 50 MG/ML VIAL IV PRN (17:30)
[2021-10-16] MEDS ORDERED: HYDROCORTISONE SOD SUCCINATE 100 MG/2 ML VIAL IV PRN (17:30)
[2021-10-16] MEDS: ATORVASTATIN 40 MG TABLET PO SCH (17:49)
--- NOTE | 2021-10-16 17:54 | NUR ---
ms rn on bed, no distress noted.
--- NOTE | 2021-10-16 18:30 | NUR ---
ms rn patient refused to insert another iv.
--- NOTE | 2021-10-16 19:45 | NUR ---
MS RN OPENING NOTES RECEIVED PATIENT LYING IN BED, A/O X4. C/O RADIATING CHEST PAIN TO LEFT ARM 01/25. ADMINISTERED O2 AT 2 LPM VIA NASAL CANNULA. HAS RIGHT FOREARM IV ACCESS #18G AND SALINE LOCK. REDNESS NOTED AROUND IV SITE. PER AM NURSE, PATIENT IS NON-COOPERATIVE AND REFUSED IV RE-INSERTION. SAFETY PRECAUTIONS IN PLACE. WILL CONTINUE PLAN OF CARE.
[2021-10-16] MEDS: HYDROCODONE/APAP 5/325MG TABLET PO PRN (20:00)
--- NOTE | 2021-10-17 06:42 | NUR ---
MS RN CLOSING NOTES PATIENT LYING IN BED, SLEEPING INTERMITTENTLY. A/O X4. NO APPARENT DISTRESS NOTED. HAS PRN O2. CURRENTLY STABLE ON ROOM AIR. ASKED FOR PUDDING AROUND 0200. NO C/O PAIN AT THIS TIME. HAS RIGHT FOREARM IV ACCESS #18G AND SALINE LOCK. LEAKING NOTED. REFUSED IV RE-INSERTION AND AM LABS. EXPLAINED RISKS AND BENEFITS. SAFETY PRECAUTIONS IN PLACE: BED LOCK AND LOW, SIDE RAILS UP X2, CALL LIGHT WITHIN REACH.
--- NOTE | 2021-10-17 07:39 | NUR ---
MS RN OPENING NOTES PATIENT ASLEEP IN BED, AROUSABLE BY NAME TO A/O X 4. TOLERATING WELL ON ROOM AIR WITH NO S/S OF RESPIRATORY DISTRESS. NO COMPLAINTS OF PAIN OR DISCOMFORT AT THIS TIME. IV ACCESS # 18 G SL LEAKING NOTED, PATIENT AGREED TO IV INSERTION ATTEMPT AFTER BREAKFAST. SAFETY PRECAUTIONS IN PLACE: BED IN LOWEST LOCKED POSITION, SIDE RAILS UP X2, CALL LIGHT WITHIN REACH. WILL CONTINUE TO MONITOR.
[2021-10-17 08:23] VITALS: BP 116/54
[2021-10-17] MEDS: NICOTINE PATCH (14MG) 14 MG PATCH.TD24 TD SCH (08:26)
[2021-10-17 08:30] VITALS: BP 110/86
[2021-10-17] MEDS: DILTIAZEM HCL CD 120 MG PO SCH (08:30)
[2021-10-17] MEDS: APIXABAN 5 MG TABLET PO SCH (08:31)
[2021-10-17] MEDS ORDERED: SACU1TAB PO (09:17)
--- NOTE | 2021-10-17 10:43 | NUR ---
MS RN NOTE SPOKE WITH PATIENT REGARDING [facility] PROCEDURE AND REQUIREMENT FOR AN IV START. PATIENT REFUSED IV START AND [facility] PROCEDURE AND REQUESTED DISCHARGE. I EXPLAINED TO PATIENT THE RISKS OF LEAVING THE HOSPITAL BEFORE RECEIVING THE PROCEDURE, BUT PATIENT INSISTED ON LEAVING HOSPITAL PRIOR TO [facility]. I EXPLAINED TO PATIENT ALL EMERGENCY SYMPTOMS AND WHEN TO CALL 911 TO RETURN TO HOSPITAL. PATIENT VERBALIZED UNDERSTANDING. BOILER ASSISTANT OPERATOR WAS CONTACTED REGARDING PATIENT DECISION AND PLACED DISCHARGE ORDER FOR PATIENT. PATIENT VITAL SIGNS STABLE, NO COMPLAINTS OF PAIN AT THIS TIME. PATIENT WILL BE DISCHARGED.
--- NOTE | 2021-10-17 11:51 | NUR ---
MS RN NOTE PATIENT CLEARED FOR DISCHARGE BY MATRIX INSPECTOR, PATIENT VISITED EARLIER TODAY BY HOSPITAL SCIENTIST, CAROL LEFT FOR SW REGARDING PATIENT DISCHARGE.
--- NOTE | 2021-10-17 12:00 | NUR ---
MS DENIAL RESOLUTION SPECIALIST NOTE PATIENT STABLE WITH NO COMPLAINTS OF PAIN OR DISCOMFORT. PATIENT REFUSED REMOVAL OF IV ACCESS, PATIENT MADE AWARE OF RISK OF INFECTION IF IV REMAINED IN PLACE, PATIENT RE-AFFIRMED REFUSAL OF IV ACCESS REMOVAL. PATIENT PROVIDED WITH ALL DISCHARGE INSTRUCTIONS AND PAPERWORK, PATIENT MADE AWARE OF MD DISCHARGE RECOMMENDATIONS AND VERBALIZED UNDERSTANDING, DISCHARGE INSTRUCTIONS LIST SIGNED. PATIENT VERBALIZED POSSESSION OF ALL BELONGINGS AND BELONGINGS LIST SIGNED. PATIENT ESCORTED OFF OF FLOOR VIA WHEELCHAIR BY RN, TO [facility], WITHOUT INCIDENT. Addendum: 10/17/21 at 1216 by LENA BEGUM RN PATIENT DISCHARGED WITH ALL HOME MEDICATIONS FROM PHARMACY. EDUCATION PROVIDED ON ALL MEDICATIONS INCLUDING NAMES, DOSAGES, ROUTES, FREQUENCIES, INDICATIONS AND SIDE EFFECTS. PATIENT VERBALIZED UNDERSTANDING.
== END 2021-10-17 12:00 | disposition home or self-care (01) | DRG 201 ==
LOC: ER 04:16 → TRANSITION 11:17 → TELE 12:18 → MED 10-16 16:22
PROVIDERS: ADMIT Registered Nurse; ATTEND Registered Nurse
DX: I48.91 Unspecified atrial fibrillation (principal); N17.0 Acute kidney failure with tubular necrosis; G72.9 Myopathy, unspecified; E78.5 Hyperlipidemia, unspecified; N18.9 Chronic kidney disease, unspecified; Z59.00 Homelessness unspecified; Z20.822 Contact with and (suspected) exposure to COVID-19; Z88.6 Allergy status to analgesic agent; Z87.81 Personal history of (healed) traumatic fracture; Z88.8 Allergy status to other drugs, medicaments and biological substances; Z79.01 Long term (current) use of anticoagulants; Z79.899 Other long term (current) drug therapy; R74.01 Elevation of levels of liver transaminase levels; Z91.14 Patient's other noncompliance with medication regimen; Z76.5 Malingerer [conscious simulation]; Z91.041 Radiographic dye allergy status; Z72.0 Tobacco use; Z91.19 Patient's noncompliance with other medical treatment and regimen; Z86.59 Personal history of other mental and behavioral disorders; R19.7 Diarrhea, unspecified; I13.0 Hypertensive heart and chronic kidney disease with heart failure and stage 1 through stage 4 chronic kidney disease, or unspecified chronic kidney disease; I50.22 Chronic systolic (congestive) heart failure
CPT/HCPCS: 36415; 71045-TC; 80048-TC; 83735-TC; 84100-TC; 84484-TC; 85025-TC; 87045-TC; 87081-TC; C9803; G0378; J7030

== ENCOUNTER 2022-05-18 17:30 | Inpatient (IN) | payer MEDICARE, OTHER ==
[~2022-05-18] VITALS: Ht 170.2 cm; Wt 68.0 kg
[~2022-05-18 17:30] MED LIST changes: +SACU1TAB PO
--- NOTE | 2022-05-18 17:45 | NUR ---
BIB [facility] FROM [facility], WORSENING SOB/WHEEZING X 2 DAYS, ALBUTEROL HHN GIVEN ENROUTE. PLACED ON BED, AAOX4, DYSPNEIC RR-26, SATURATING AT 100% WITH 15LIT NRM.
[2022-05-18] MEDS ORDERED: methylPREDNISolone SOD SUCC 125 MG/2ML VIAL IV ONE (18:00)
[2022-05-18] MEDS ORDERED: IPRATROPIUM NEB FS 0.5 MG/2.5 ML AMPUL.NEB NEB ONE (18:00)
[2022-05-18] MEDS ORDERED: ALBUTEROL FS 2.5 MG/3 ML VIAL.NEB NEB ONE (18:00)
[2022-05-18] MEDS ORDERED: METO25TA20 PO (19:06)
[2022-05-18] MEDS ORDERED: APIX5TAB PO (19:06)
[2022-05-18] MEDS ORDERED: ASPI-1169 PO (19:06)
[2022-05-18] MEDS ORDERED: NITR0.4T48 SL (19:06)
[2022-05-18] MEDS ORDERED: ALBU18HF2 IH (19:06)
[2022-05-18] MEDS ORDERED: ATOR40TA PO (19:07)
[2022-05-18] MEDS ORDERED: CHOL100043 PO (19:07)
[2022-05-18] MEDS ORDERED: POTA99TA14 PO (19:08)
[2022-05-18 19:17] LABS: CALCIUM, SERUM 8.2 mg/dL (8.5-10.1); CARBON DIOXIDE 29 mmol/L (21-32); CHLORIDE 108 mmol/L (98-107); CREATININE 2.1 mg/dL (0.6-1.3); GLUCOSE 114 mg/dL (74-106); POTASSIUM 4.3 mmol/L (3.5-5.1); SODIUM SERUM 143 mmol/L (136-145); UREA NITROGEN, BLOOD 46 mg/dL (7-18)
--- NOTE | 2022-05-18 19:27 | NUR ---
LAB CALLED HEAVEN Cortes MD MADE AWARE.
[2022-05-18 19:31] LABS: ALANINE AMINOTRANSFERASE 33 U/L (12-78); ALBUMIN 3.8 g/dL (3.4-5.0); ALKALINE PHOSPHATASE 75 U/L (46-116); ASPARTATE AMINOTRANSFERASE 32 U/L (15-37); BILIRUBIN,DIRECT 0.2 mg/dL (0.0-0.2); BILIRUBIN,TOTAL 0.5 mg/dL (0.2-1.0); TOTAL PROTEIN, SERUM 8.4 g/dL (6.4-8.2)
[2022-05-18] MEDS ORDERED: ALBUTEROL FS 2.5 MG/3 ML VIAL.NEB ONE (19:45)
[2022-05-18] MEDS ORDERED: IPRATROPIUM NEB FS 0.5 MG/2.5 ML AMPUL.NEB ONE (19:45)
--- NOTE | 2022-05-18 19:49 | NUR ---
swab for covid19 sent to lab
[2022-05-18 20:07] LABS: BASOPHILS # (AUTO) 0.1 K/uL (0.0-0.2); BASOPHILS % (AUTO) 0.6 % (0.0-2.0); EOSINOPHILS % (AUTO) 0.2 % (0.0-6.0); HEMATOCRIT 39 % (39-51); HEMOGLOBIN 12.6 g/dL (13.5-17.5); LYMPHOCYTES # (AUTO) 0.9 K/uL (0.8-4.8); MEAN CORPUSCULAR HGB CONC 32 g/dl (31.0-36.0); MEAN CORPUSCULAR VOLUME 92 fL (80-96); MONOCYTES # (AUTO) 0.8 K/uL (0.1-1.30); MONOCYTES % (AUTO) 8.6 % (2.0-12.0); NEUTROPHILS # (AUTO) 8.1 K/uL (1.8-8.9); NEUTROPHILS % (AUTO) 81.6 % (43.0-81.0); PLATELET COUNT (AUTO) 200 K/uL (150-450); RED BLOOD CELL COUNT(AUTO) 4.21 MIL/uL (4.5-6.0); WHITE BLOOD COUNT (AUTO) 9.9 K/uL (4.3-11.0)
[2022-05-18] MEDS ORDERED: CLOPIDOGREL BISULFATE 75 MG TABLET PO ONE (20:30)
[2022-05-18] MEDS ORDERED: MAG HYDROX/AL HYDROX/SIMETH 30 ML UDC PO PRN (21:00)
[2022-05-18] MEDS ORDERED: IPRATROPIUM NEB FS 0.5 MG/2.5 ML AMPUL.NEB NEB PRN (21:00)
[2022-05-18] MEDS ORDERED: ONDANSETRON HCL/PF 4 MG/2 ML VIAL IVP PRN (21:00)
[2022-05-18] MEDS ORDERED: MORPHINE SULFATE INJ 2 MG/ML DISP.SYRIN IV PRN (21:00)
[2022-05-18] MEDS ORDERED: ACETAMINOPHEN 325 MG TABLET PO PRN (21:00)
[2022-05-18] MEDS ORDERED: TEMAZEPAM 15 MG CAPSULE PO PRN (21:00)
[2022-05-18] MEDS ORDERED: HYDROCODONE/APAP 5/325MG TABLET PO PRN (21:00)
[2022-05-18] MEDS ORDERED: MAGNESIUM HYDROXIDE 30 ML UDC PO PRN (21:00)
[2022-05-18] MEDS ORDERED: ALBUTEROL FS 2.5 MG/3 ML VIAL.NEB NEB PRN (21:00)
[2022-05-18] MEDS ORDERED: HOME MED MISCELLANEOUS XX SCH (21:00)
[2022-05-18] MEDS ORDERED: Z GUARD REMEDY 4 OZ OINT TP PRN (21:00)
--- NOTE | 2022-05-18 21:32 | NUR ---
[facility] BED 115-1
[2022-05-18] MEDS ORDERED: CLOPIDOGREL BISULFATE 75 MG TABLET ONE (21:43)
[2022-05-18] MEDS ORDERED: ATORVASTATIN 40 MG TABLET PO SCH (22:00)
--- NOTE | 2022-05-18 22:00 | NUR ---
REPORT GIVEN TO YULI RN ROOM 115-1 FOR MARTIR
[2022-05-18] MEDS ORDERED: methylPREDNISolone SOD SUCC 125 MG/2ML VIAL ONE (22:01)
--- NOTE | 2022-05-18 22:14 | NUR ---
TRANSFERRED PT TO ROOM
--- NOTE | 2022-05-18 22:30 | NUR ---
RN OPENING NOTE RECEIVED PT VIA [facility] FROM ER WITH A DIAGNOSIS OF COPD EXACERBATION. PT IS AWAKE, A/O X 1-2, VERBALLY RESPONSIVE. SOB NOTED. PT ON NC AT 3LPM WITH O2 SAT AT 94% UPON ADMISSION IN THE UNIT. NO IV ACCESS UPON RECEIVING BUT WAS ABLE TO PUT ONE AT L WRIST, #22g. NO OPEN WOUNDS; SKIN INTACT. ALL SAFETY MEASURES IN PLACE: BED LOCKED IN LOW POSITION, BED ALARM ON. CALL LIGHT WITHIN REACH. WILL CONT TO MONITOR.
[2022-05-18] MEDS: methylPREDNISolone SOD SUCC 40 MG/ML VIAL IV SCH (23:23)
[2022-05-19] VITALS: BP 120/73
[2022-05-19 04:00] VITALS: BP 114/69
[2022-05-19] MEDS: methylPREDNISolone SOD SUCC 40 MG/ML VIAL IV SCH (04:19)
--- NOTE | 2022-05-19 06:42 | NUR ---
RN NOTE PT COMPLAINS OF CHEST PAIN. V/S ARE STABLE. O2 SAT IS 97%. NO ACUTE RESPI DISTRESS NOTED. GAVE MORPHINE PRN ORDERED. WILL ENDORSE TO AM SHIFT NURSE FOR MARTIR.
--- NOTE | 2022-05-19 06:51 | NUR ---
RN NOTE PT REFUSED MIDLINE INSERTION. EDUCATED PT ABOUT IMPORTANCE OF THE MIDLINE FOR DRUG MEDICATION, PT THREATENS TO LEAVE IF WE PUSH THROUGH WITH THE ML INSERTION. REITERATED THE RISKS OF HIS REFUSAL. STILL SAID NO. WILL ENDORSE TO AM SHIFT NURSE FOR MARTIR.
[2022-05-19] MEDS ORDERED: PANTOPRAZOLE 40 MG TABLET.DR PO SCH (07:30)
--- NOTE | 2022-05-19 07:30 | NUR ---
BUSINESS AFFAIRS MANAGER AM NOTES PT IN BED, AWAKE,ALERT /ORIENTED X2-3, ABLE TO EXPRESS NEEDS, ON 3L O2 NASAL CANULA, NO DISTRESS, RESPIRATION UNLABORED, SFIB CON HR 86, DENIES CHEST PAIN OR DISCOMFORT, LEFT WRIST G [address], FLUSHES WELL, SITE CLEAR. CARDIAC DIET. BED REST FOR NOW. SAFETY MEASURES IN PLACE, BED LOW LOCKED CALL WITHIN REACH. WILL CONT TO MONITOR. PATIENT FOR MIDLINE INSERTION BUT REFUSED EARLIER. STATED HE WILL LEAVE IF WE INSIST PUTTING A LINE ON HIM DESPITE EXPLAINING THE IMPORTANCE.
[2022-05-19 07:52] LABS: CALCIUM, SERUM 7.7 mg/dL (8.5-10.1); CARBON DIOXIDE 24 mmol/L (21-32); CHLORIDE 108 mmol/L (98-107); CREATININE 1.8 mg/dL (0.6-1.3); GLUCOSE 113 mg/dL (74-106); MAGNESIUM 1.9 mg/dL (1.8-2.4); PHOSPHORUS 3.6 mg/dL (2.5-4.9); POTASSIUM 4.1 mmol/L (3.5-5.1); SODIUM SERUM 142 mmol/L (136-145); UREA NITROGEN, BLOOD 39 mg/dL (7-18)
[2022-05-19 07:53] LABS: CHOLESTEROL 129 mg/dL (<200); HDL CHOLESTEROL 67 mg/dL (40-60); LDL 55 mg/dL (0-99); TRIGLYCERIDES 38 mg/dL (30-150)
[2022-05-19 07:57] LABS: BASOPHILS % (AUTO) 0.1 % (0.0-2.0); HEMATOCRIT 36 % (39-51); HEMOGLOBIN 11.8 g/dL (13.5-17.5); LYMPHOCYTES # (AUTO) 0.2 K/uL (0.8-4.8); LYMPHOCYTES % (AUTO) 3.1 % (20.0-44.0); MEAN CORPUSCULAR HGB CONC 33 g/dl (31.0-36.0); MEAN CORPUSCULAR VOLUME 92 fL (80-96); MONOCYTES # (AUTO) 0.1 K/uL (0.1-1.30); MONOCYTES % (AUTO) 1.3 % (2.0-12.0); NEUTROPHILS # (AUTO) 5.3 K/uL (1.8-8.9); NEUTROPHILS % (AUTO) 95.5 % (43.0-81.0); PLATELET COUNT (AUTO) 177 K/uL (150-450); RED BLOOD CELL COUNT(AUTO) 3.94 MIL/uL (4.5-6.0); WHITE BLOOD COUNT (AUTO) 5.6 K/uL (4.3-11.0)
[2022-05-19 08:00] VITALS: BP 109/61
[2022-05-19] MEDS ORDERED: METOPROLOL TARTRATE 25 MG TABLET PO SCH (09:00)
[2022-05-19] MEDS ORDERED: DILTIAZEM HCL CD 120 MG PO SCH (09:00)
[2022-05-19] MEDS ORDERED: ASPIRIN 81 MG TAB.CHEW PO SCH (09:00)
[2022-05-19] MEDS ORDERED: IV NS 0.9% 1,000 ML IV PRN (09:30)
--- NOTE | 2022-05-19 09:30 | NUR ---
RN NOTES DUE MEDS GIVEN
[2022-05-19] MEDS: APIXABAN 5 MG TABLET PO SCH ×2 (09:38→16:30)
[2022-05-19] MEDS ORDERED: LEVOFLOXACIN (250MG) 250 MG TABLET PO SCH (11:00)
[2022-05-19 12:00] VITALS: BP 115/78
[2022-05-19] MEDS ORDERED: methylPREDNISolone SOD SUCC 40 MG/ML VIAL IV SCH (13:00)
[2022-05-19] MEDS ORDERED: ALBUTEROL FS 2.5 MG/3 ML VIAL.NEB NEB SCH (13:30)
[2022-05-19] MEDS ORDERED: IPRATROPIUM NEB FS 0.5 MG/2.5 ML AMPUL.NEB NEB SCH (13:30)
[2022-05-19 16:00] VITALS: BP 101/51
--- NOTE | 2022-05-19 18:39 | NUR ---
EMERGENCY PLANNING AND RESPONSE MANAGER CLOSING NOTES PT RESTING IN BED, AWAKE,ALERT /ORIENTED X2-3, ABLE TO EXPRESS NEEDS, ON 3L O2 NASAL CANULA, NO DISTRESS, RESPIRATION UNLABORED, AFIB CON HR 65, DENIES CHEST PAIN OR DISCOMFORT, LEFT WRIST G [address], FLUSHES WELL, SITE CLEAR. MD ORDERED NS AT 70 ML/HR BUT PATIENT REFUSED. CARDIAC DIET. BED REST FOR NOW. SAFETY MEASURES IN PLACE, BED LOW LOCKED CALL WITHIN REACH. ALL NEEDS MET AT THIS TIME. WILL ENDORSE TO NEXT SHIFT FOR MARTIR. PATIENT STILL REFUSE MIDLINE INSERTION DESPITE EXPLAINING THE IMPORTANCE, DR FORD AWARE.
--- NOTE | 2022-05-19 20:57 | NUR ---
COMMERCIAL CARPET INSTALLER NOTES: PT WANTS TO LEAVE AMA. PT IS HOMELESS. ASKED PT WHERE HE IS GOING? HE MENTIONED, HE HAS A CAMPER. EDUCATED HIM, HE NEEDS OXYGEN OTHERWISE, HIS LEVEL WILL GO DOWN. EXPLAINED THE RISKS AND BENEFITS BUT PT STRONGLY REFUSED TO LISTEN. REMOVED HIS GOWN AND TELE BOX. NOTIFIED KEARA HAYNES. SHE SAID OK TO D/C. PT SIGNED AMA. REMOVED IV ACCESS. EDUCATED PT IF FEELS CHEST PAIN, DIZZINESS, PALPITATION OR ANY OTHER SYMPTOM, IMMEDIATELY GO TO ER. PT UNDERSTOOD.
== END 2022-05-19 22:00 | disposition left against medical advice (07) | DRG 190 ==
LOC: ER 17:32 → TELE1 21:38
PROVIDERS: ADMIT Nurse Practitioner Acute Care; ATTEND Internal Medicine
PROC: 05HY33Z Insertion of Infusion Device into Upper Vein, Percutaneous Approach (ICD-10-PCS; principal; 2022-05-19)
DX: J44.1 Chronic obstructive pulmonary disease with (acute) exacerbation (principal); I21.A1 Myocardial infarction type 2; N17.0 Acute kidney failure with tubular necrosis; I50.22 Chronic systolic (congestive) heart failure; I48.20 Chronic atrial fibrillation, unspecified; I13.0 Hypertensive heart and chronic kidney disease with heart failure and stage 1 through stage 4 chronic kidney disease, or unspecified chronic kidney disease; J98.11 Atelectasis; E86.0 Dehydration; N18.9 Chronic kidney disease, unspecified; Z59.00 Homelessness unspecified; Z79.82 Long term (current) use of aspirin; Z79.01 Long term (current) use of anticoagulants; Z87.891 Personal history of nicotine dependence; R91.8 Other nonspecific abnormal finding of lung field; Z20.822 Contact with and (suspected) exposure to COVID-19; J40 Bronchitis, not specified as acute or chronic; G72.9 Myopathy, unspecified
CPT/HCPCS: 36415; 71045-TC; 71250-TC; 76770-TC; 80048-TC; 80061-TC; 80076-TC; 83735-TC; 83880; 84100-TC; 84484-TC; 85025-TC; 93307-TC; 94799-TC; C9803; G0378; J2270; J2920; J2930; J7030

== ENCOUNTER 2022-07-16 02:53 | Emergency (ER) | payer MEDICARE, OTHER ==
[~2022-07-16] VITALS: Ht 172.7 cm; Wt 74.8 kg
[~2022-07-16 02:53] MED LIST changes: +ALBU18HF2 IH; +ASPI-1169 PO; +CHOL100043 PO; +METO25TA20 PO; +NITR0.4T48 SL; +POTA99TA14 PO
--- NOTE | 2022-07-16 03:10 | NUR ---
PATIENT BIBRA[address] FROM STRE[address] C/O COUGH FOR THE PAST FEW DAYS. PT IS A/OX4, RR EVEN, 96%RA. VSS. PATIENT IS AFEBRILE. PT TO ER BED 03, CONNECTED TO CARDIAC AND POX MONITOR.
--- NOTE | 2022-07-16 03:12 | NUR ---
DR. FORREST MIGUEL AT PT'S BEDSIDE FOR EVAL
--- NOTE | 2022-07-16 03:13 | NUR ---
COVID ANTIGEN SWAB COLLECTED AND SENT TO LAB
--- NOTE | 2022-07-16 03:13 | NUR ---
EMT AT PT'S BEDSIDE FOR EKG
--- NOTE | 2022-07-16 03:13 | NUR ---
INFLUENZA SWAB COLLECTED AND SENT TO LAB
--- NOTE | 2022-07-16 03:18 | NUR ---
SPOILAGE WORKER AT PT'S BEDSIDE
[2022-07-16] MEDS ORDERED: IPRATROPIUM NEB FS 0.5 MG/2.5 ML AMPUL.NEB NEB ONE (03:30)
[2022-07-16] MEDS ORDERED: ALBUTEROL FS 2.5 MG/3 ML VIAL.NEB CONTNEB ONE (03:30)
--- NOTE | 2022-07-16 03:30 | NUR ---
RT NOTE LATE ENTRY PT REFUSED ABG. AWARE.
[2022-07-16] MEDS ORDERED: IPRATROPIUM NEB FS 0.5 MG/2.5 ML AMPUL.NEB ONE (03:32)
[2022-07-16] MEDS ORDERED: ALBUTEROL FS 2.5 MG/3 ML VIAL.NEB ONE (03:32)
--- NOTE | 2022-07-16 03:46 | NUR ---
20g iv started at . blood sent to lab
--- NOTE | 2022-07-16 03:46 | NUR ---
RT AT BEDSIDE FOR ABG
--- NOTE | 2022-07-16 03:50 | NUR ---
PT REFUSED ABG. MADE AWARE.
[2022-07-16 04:40] LABS: BASOPHILS % (AUTO) 0.2 % (0.0-2.0); EOSINOPHILS % (AUTO) 1.3 % (0.0-6.0); HEMATOCRIT 39 % (39-51); HEMOGLOBIN 12.4 g/dL (13.5-17.5); LYMPHOCYTES # (AUTO) 1.3 K/uL (0.8-4.8); LYMPHOCYTES % (AUTO) 11.6 % (20.0-44.0); MEAN CORPUSCULAR HGB CONC 32 g/dl (31.0-36.0); MEAN CORPUSCULAR VOLUME 92 fL (80-96); MONOCYTES # (AUTO) 0.9 K/uL (0.1-1.30); MONOCYTES % (AUTO) 7.5 % (2.0-12.0); NEUTROPHILS # (AUTO) 9.1 K/uL (1.8-8.9); NEUTROPHILS % (AUTO) 79.4 % (43.0-81.0); PLATELET COUNT (AUTO) 348 K/uL (150-450); RED BLOOD CELL COUNT(AUTO) 4.24 MIL/uL (4.5-6.0); WHITE BLOOD COUNT (AUTO) 11.4 K/uL (4.3-11.0)
[2022-07-16 04:55] LABS: CARBON DIOXIDE 28 mmol/L (21-32); CHLORIDE 104 mmol/L (98-107); CREATININE 1.8 mg/dL (0.6-1.3); GLUCOSE 106 mg/dL (74-106); POTASSIUM 5.4 mmol/L (3.5-5.1); SODIUM SERUM 138 mmol/L (136-145); UREA NITROGEN, BLOOD 23 mg/dL (7-18)
[2022-07-16 05:08] LABS: ALANINE AMINOTRANSFERASE 77 U/L (12-78); ALBUMIN 2.4 g/dL (3.4-5.0); ALKALINE PHOSPHATASE 104 U/L (46-116); ASPARTATE AMINOTRANSFERASE 39 U/L (15-37); BILIRUBIN,DIRECT 0.2 mg/dL (0.0-0.2); BILIRUBIN,TOTAL 0.3 mg/dL (0.2-1.0); TOTAL PROTEIN, SERUM 6.9 g/dL (6.4-8.2)
--- NOTE | 2022-07-16 05:28 | NUR ---
PT BEING TRANSPORTED TO CT VIA [facility]
[2022-07-16] MEDS ORDERED: ACETAMINOPHEN ES 500 MG TABLET PO ONE (06:00)
[2022-07-16] MEDS ORDERED: ACETAMINOPHEN ES 500 MG TABLET ONE (06:05)
--- NOTE | 2022-07-16 08:10 | NUR ---
EPIC ON PANEL CALL
--- NOTE | 2022-07-16 08:13 | NUR ---
Sleeping - Respirations even and unlabored.VSS. Await consult for possible admission
[2022-07-16] MEDS ORDERED: ALBUTEROL FS 2.5 MG/0.5 ML VIAL.NEB NEB PRN (08:30)
[2022-07-16] MEDS ORDERED: MORPHINE SULFATE INJ 2 MG/ML DISP.SYRIN IV PRN (08:30)
[2022-07-16] MEDS ORDERED: hydrALAZINE HCL IV 20 MG VIAL IV PRN (08:30)
[2022-07-16] MEDS ORDERED: ACETAMINOPHEN 325 MG TABLET PO PRN (08:30)
[2022-07-16] MEDS ORDERED: ONDANSETRON HCL/PF 4 MG/2 ML VIAL IVP PRN (08:30)
[2022-07-16] MEDS ORDERED: APIXABAN 5 MG TABLET PO SCH (09:00)
[2022-07-16] MEDS ORDERED: METOPROLOL TARTRATE 25 MG TABLET PO SCH (09:00)
[2022-07-16] MEDS ORDERED: ASPIRIN 81 MG TAB.CHEW PO SCH (09:00)
[2022-07-16] MEDS ORDERED: LOSARTAN POTASSIUM 25 MG TABLET PO SCH (09:00)
[2022-07-16] MEDS ORDERED: FUROSEMIDE 40 MG/4 ML VIAL IV SCH (09:00)
[2022-07-16] MEDS ORDERED: FUROSEMIDE 40 MG/4 ML VIAL ONE (09:46)
[2022-07-16] MEDS ORDERED: APIXABAN 5 MG TABLET ONE (09:46)
[2022-07-16] MEDS ORDERED: METOPROLOL TARTRATE 50 MG TABLET ONE (09:47)
[2022-07-16] MEDS ORDERED: LOSARTAN POTASSIUM 25 MG TABLET ONE (09:47)
--- NOTE | 2022-07-16 09:59 | NUR ---
Pt awake medicated as ordered. HL on Right forearm flushed- infiltrated. Got agitated/verbally agressive. Using cuss words and became Obnoxious .Refusing to start another line. Mid line requested.
--- NOTE | 2022-07-16 11:45 | NUR ---
Dr Kwan here to see pt. NO beds available at this time. Await room assignment. Pt updated with plan. Appears unhappy and frustrated states "been here too long"
[2022-07-16] MEDS ORDERED: IPRATROPIUM/ALBUTEROL INHALER IH SCH (12:00)
--- NOTE | 2022-07-16 12:07 | NUR ---
Pt refuses any and all intervention at this time states "I'm out of here." Given lunch- tolerated 100%
--- NOTE | 2022-07-16 12:15 | NUR ---
Pt signed AMA for. Dr Kwan aware. Pt Walked out of ER in NO distess. Ambulatory gait even and steady
[2022-07-16 12:16] VITALS: BP 142/86
[2022-07-16] MEDS ORDERED: ATORVASTATIN 40 MG TABLET PO SCH (22:00)
== END 2022-07-16 12:18 | disposition left against medical advice (07) ==
LOC: ER 03:04
DX: R07.9 Chest pain, unspecified (principal); J43.2 Centrilobular emphysema; R91.8 Other nonspecific abnormal finding of lung field; I50.9 Heart failure, unspecified; Z88.6 Allergy status to analgesic agent; I48.91 Unspecified atrial fibrillation; Z87.01 Personal history of pneumonia (recurrent); Z79.01 Long term (current) use of anticoagulants; Z79.899 Other long term (current) drug therapy; E87.5 Hyperkalemia; Z59.00 Homelessness unspecified; F17.210 Nicotine dependence, cigarettes, uncomplicated; I27.20 Pulmonary hypertension, unspecified; T81.82XA Emphysema (subcutaneous) resulting from a procedure, initial encounter; D64.9 Anemia, unspecified; I13.10 Hypertensive heart and chronic kidney disease without heart failure, with stage 1 through stage 4 chronic kidney disease, or unspecified chronic kidney disease; N18.9 Chronic kidney disease, unspecified; R91.1 Solitary pulmonary nodule
CPT/HCPCS: 99285; 71250; 71045; 87426; 93005; 87804; 84145; 85025; 80048; 80076; 36415; 87081; 83880; 94644; J1940; C9803